=== PATIENT | female | born 1975 ===

== ENCOUNTER 2021-01-06 06:55 | Day surgery (SDC) | payer OTHER ==
[2021-01-06 08:02] VITALS: BP 116/72; TEMP 97.4; BMI 34.5
== END 2021-01-06 10:15 | disposition home or self-care (01) ==
LOC: RAD 06:55
PROVIDERS: ATTEND Nurse Practitioner Family
DX: M47.27 Other spondylosis with radiculopathy, lumbosacral region (principal); M48.061 Spinal stenosis, lumbar region without neurogenic claudication; M21.372 Foot drop, left foot; M21.371 Foot drop, right foot; M79.7 Fibromyalgia; Z79.51 Long term (current) use of inhaled steroids; Z79.899 Other long term (current) drug therapy; Z88.8 Allergy status to other drugs, medicaments and biological substances; Z87.891 Personal history of nicotine dependence
CPT/HCPCS: 72100; 72131; 72132; 77002